=== PATIENT | male | born 1940 | race Caucasian/White ===

== ENCOUNTER → 2018-05-11 | Outpatient (REF) | payer MEDICARE ==
[2018-05-11 10:00] LABS: GFR > 60 ML/MIN (>=60 (CALC)); GFR FOR AFR.AMER. > 60 ML/MIN (>=60 (CALC))
== END | disposition home or self-care (01) ==
LOC: CT 08:45
PROVIDERS: ATTEND Nurse Practitioner Family
DX: R05 Cough (principal); Z87.891 Personal history of nicotine dependence
CPT/HCPCS: Q9967